=== PATIENT | female | born 1985 | race Caucasian/White ===

== ENCOUNTER 2019-10-12 10:55 | Day surgery (SDC) | payer OTHER, MEDICAID ==
[2019-10-09 12:01] LABS: HEMATOCRIT 42.1 % (36.0-47.0); HEMOGLOBIN 14.3 g/dL (12.0-15.5); MEAN CORPUSCULAR HEMOGLOBIN 33.1 pg (27.0-33.4); MEAN CORPUSCULAR HGB CONC 33.9 g/dL (32.0-36.0); MEAN CORPUSCULAR VOLUME 98 fl (80-97); PLATELET COUNT 212 10^3/uL (150-450); RED BLOOD COUNT 4.31 10^6/uL (3.72-5.28); WHITE BLOOD COUNT 6.9 10^3/uL (4.0-10.5)
[2019-10-09 12:05] LABS: APPEARANCE,URINE CLEAR; BILIRUBIN,URINE NEGATIVE (NEGATIVE); COLOR,URINE YELLOW; GLUCOSE, URINE NEGATIVE (NEGATIVE); KETONES,URINE NEGATIVE (NEGATIVE); LEUKOCYTE ESTERASE,URINE NEGATIVE (NEGATIVE); NITRITE,URINE NEGATIVE (NEGATIVE); PROTEIN,URINE NEGATIVE (NEGATIVE); URINE SPECIFIC GRAVITY 1.008; UROBILINOGEN,URINE NEGATIVE mg/dL (<2.0)
[~2019-10-12 10:55] MED LIST: CEFAZOLIN 1 GM/D5W RTU 1 GM/50 ML RTUPB IV ONE; CEFAZOLIN 1 GM/D5W RTU 1 GM/50 ML RTUPB IV PRN; LACTATED RINGERS 1000 ML IV PRN; LIDOCAINE 0.5% INJ-PF (5 MG/ML) 50 ML SDV SUBCUT PRN; LIDOCAINE 1%/EPINEPHRINE INJ 20 ML VIAL ONE
[2019-10-12] MEDS ORDERED: FENTANYL CITRATE INJ/PF 100 MCG/2 ML AMPUL ONE ×2 (11:21→13:02)
[2019-10-12] MEDS ORDERED: KETAMINE HCL INJ 500 MG/10 ML VIAL ONE (11:21)
[2019-10-12] MEDS ORDERED: PROPOFOL INJ 200 MG/20 ML VIAL IV ONE (11:22)
[2019-10-12] MEDS ORDERED: DEXMEDETOMIDINE INJ 80 MCG/20 ML VIAL IV ONE (11:22)
[2019-10-12] MEDS ORDERED: ONDANSETRON HCL INJ/PF 4 MG/2 ML SDV ONE (11:22)
[2019-10-12] MEDS ORDERED: MIDAZOLAM 2 MG/2 ML INJ ONE (11:22)
[2019-10-12] MEDS ORDERED: MORPHINE SULFATE 10 MG/ML INJ IV PRN (12:09)
[2019-10-12] MEDS ORDERED: DIPHENHYDRAMINE HCL 50 MG/ML VIAL IV PRN (12:09)
[2019-10-12] MEDS ORDERED: FENTANYL CITRATE INJ/PF 100 MCG/2 ML AMPUL IV PRN ×3 (12:09)
[2019-10-12] MEDS ORDERED: PROMETHAZINE HCL INJ 25 MG/1 ML VIAL IV PRN (12:09)
[2019-10-12] MEDS ORDERED: MEPERIDINE HCL/PF INJ 25 MG/1 ML DISP.SYRIN IV PRN (12:09)
[2019-10-12] MEDS ORDERED: OXYCODONE-ACETAMINOPHEN 5-325 MG TABLET PO PRN ×2 (13:16)
[2019-10-12] MEDS ORDERED: RINGERS SOLUTION,LACTATED 1,000 ML IV PRN (13:16)
[2019-10-12] MEDS ORDERED: IBUPROFEN 800 MG TABLET PO PRN (13:16)
[2019-10-12] MEDS ORDERED: KETOROLAC TROMETHAMINE INJ/PF 30 MG/1 ML SDV IV PRN (13:16)
[2019-10-12] MEDS ORDERED: KETOROLAC TROMETHAMINE INJ/PF 30 MG/1 ML SDV ONE (13:28)
--- NOTE | 2019-10-12 13:37 | Operative Report ---
Operative Report DATE OF SURGERY: 10/12/19 PREOPERATIVE DIAGNOSIS: JOHNATHON 2-3 on cervix, swollen lymph node of groin POSTOPERATIVE DIAGNOSIS: same OPERATION: Cold knife cone and right lymph node dissection SURGEON: NISHA GALICIA 1ST GASKET FORMER: FRANK ESCALANTE ANESTHESIA: LMAC TISSUE REMOVED OR ALTERED: Cervical biopsy specimen marked at the 12 o'clock position, right lymph node from the groin COMPLICATIONS: None ESTIMATED BLOOD LOSS: 20 INTRAOPERATIVE FINDINGS: Normal-appearing parous cervix. Moderately swollen swollen lymph node of the right groin PROCEDURE: She was taken to the operating room prepared and draped in normal sterile fashion dorsolithotomy position. Under sterile conditions and In-N-Out catheter was done excellently 800 cc. Sterile speculum was placed into the vagina and the cervix was injected circumferentially with approximately 10 cc of lidocaine with epi. Stay sutures were placed at 3 and 9:00 Vicryl. The cervix was then grasped on the anterior aspect and a cold knife conization was performed using an 11 blade scalpel in a circumferential fashion aiming the scalpel inward to obtain good endocervical material the sample was then amputated using the Metzenbaum Metzenbaum scissors but was passed off and was tagged at 12:00 with a silk suture this was then passed off the field. Defect was then well cauterized with the ball cautery. Surgifoam soaked in Monsel's was then placed within the defect and tied in with the stay sutures. The marked area was located around the patient's right groin is been brought marked preoperatively and incision with a 15 blade scalpel was made scoring the skin and underlying submucosal tissue lymph node swelling was located and amputated using the using a scalpel. The entire tissue was removed and placed in a sterile container. The Bovie was then used to cauterize some areas of bleeding several interrupted sutures were placed in the subcutaneous layer for closure and then the skin was closed at this area with 4-0 Vicryl. Tolerated procedure well sponge lap and needle counts correct x2 the patient went to recovery in stable condition
[2019-10-12] MEDS ORDERED: IBUPROFEN 800 MG TABLET ONE (13:40)
--- NOTE | 2019-10-12 13:40 | Discharge Summary ---
Discharge Summary (SDC) - Discharge Final Diagnosis: JOHNATHON 2-3, swollen lymph node Date of Surgery: 10/12/19 Discharge Date: 10/12/19 Condition: Good Forms: ASU Anesthesia D/C Instruction, Discharge POC-Surgical Service Prescriptions: Oxycodone HCl/Acetaminophen [Percocet 5-325 mg Tablet] 1 tab PO Q4HP PRN #30 tablet PRN Reason: Ibuprofen [Motrin 800 mg Tablet] 800 mg PO NOW PRN #30 tablet PRN Reason: Referrals: NISHA GALICIA MD [ACTIVE STAFF] -
[2019-10-12 15:12] VITALS: BP 92/56
== END 2019-10-12 14:40 | disposition home or self-care (01) ==
LOC: OROUT 10:55
PROVIDERS: ATTEND Obstetrics & Gynecology
DX: D06.0 Carcinoma in situ of endocervix (principal); E03.9 Hypothyroidism, unspecified; J45.909 Unspecified asthma, uncomplicated; R59.9 Enlarged lymph nodes, unspecified; F17.210 Nicotine dependence, cigarettes, uncomplicated; Z79.899 Other long term (current) drug therapy; Z03.818 Encounter for observation for suspected exposure to other biological agents ruled out
CPT/HCPCS: 36415; 85027; 87635; 81025; 81001; 88305 ×2; 88307 ×2; 01250; 57520; 38500; J2250; J0690; J3010; J3490 ×3; J1885; J2405; J2704; C9803; 1250